=== PATIENT | female | born 1985 | race American Indian/Alaskan Native ===

== ENCOUNTER 2019-07-27 23:37 | Emergency (ER) | payer SELFPAY ==
[2019-07-28 01:11] LABS: Bilirubin,Urine NEG (Negative); Blood,Urine SM (Negative); Color,Urine Yellow (Yellow); Mucus,Urine FEW /HPF; Protein,Urine <15 mg/dL mg/dL (Negative); Urobilinogen,Urine < 2.0 mg/dL (<2.0)
[2019-07-28 01:26] LABS: Basophils % (Auto) 0.4 % (0.0-1.8); Eosinophils # (Auto) 0.2 K/mm3 (0.0-0.4); Eosinophils % (Auto) 2.3 % (0.0-4.3); Hematocrit 38.2 % (30.3-42.9); Hemoglobin 12.7 gm/dl (10.1-14.3); Lymphocytes # (Auto) 2.4 K/mm3 (1.2-5.4); Lymphocytes % (Auto) 36.7 % (13.4-35.0); Mean Corpuscular HGB Conc 33 % (30-34); Mean Corpuscular Volume 79 fl (79-97); Monocytes # (Auto) 0.7 K/mm3 (0.0-0.8); Monocytes % (Auto) 9.8 % (0.0-7.3); Platelet Count 247 K/mm3 (140-440); Red Blood Count 4.83 M/mm3 (3.65-5.03); Red Cell Distribution Width 14.9 % (13.2-15.2)
[2019-07-28 01:44] LABS: Alanine Aminotransferase 12 units/L (7-56); Albumin 4.1 g/dL (3.9-5); BUN/Creatinine Ratio 14; Blood Urea Nitrogen 13 mg/dL (7-17); Calcium 9.2 mg/dL (8.4-10.2); Hemolysis Index 19
--- NOTE | 2019-07-28 01:47 | Cat Scan Report ---
CT ABDOMEN AND PELVIS WITHOUT CONTRAST INDICATION / CLINICAL INFORMATION: lt flank pain. Nausea and constipation. TECHNIQUE: Axial CT images were obtained through the abdomen and pelvis without IV contrast. All CT scans at [facility] location are performed using CT dose reduction for ALARA by means of automated exposure control. COMPARISON: None available. FINDINGS: LOWER CHEST: No significant abnormality. LIVER: No significant abnormality. GALLBLADDER: Contracted with tiny gallstones but no inflammation. BILE DUCTS: No significant abnormality. PANCREAS: No significant abnormality. SPLEEN: No significant abnormality. ADRENALS: No significant abnormality. RIGHT KIDNEY and URETER: No significant abnormality. LEFT KIDNEY and URETER: No significant abnormality. STOMACH and SMALL BOWEL: No significant abnormality. COLON: No significant abnormality. APPENDIX: No significant abnormality. PERITONEUM: No free fluid. No free air. No fluid collection. LYMPH NODES: No significant adenopathy. AORTA and ARTERIES: No significant abnormality. IVC and VEINS: No significant abnormality. URINARY BLADDER: No significant abnormality. REPRODUCTIVE ORGANS: Intrauterine device in place. Small pedunculated fibroid off of the fundus of e uterus. No adnexal abnormality. ADDITIONAL FINDINGS: None. SKELETAL SYSTEM: No significant abnormality. IMPRESSION: 1. No inflammatory process or bowel obstruction. 2. No urinary tract stones or hydronephrosis. 3. Contracted gallbladder with tiny gallstones but no inflammation. Signer Name: Antonieta Escobar MD Signed: 07/28/2019 2:43 AM Workstation Name: [id number]
--- NOTE | 2019-07-28 01:57 | Emergency Department Report ---
ED Abdominal Pain HPI - General Chief Complaint: Abdominal Pain Stated Complaint: SOB/VOMITING/LIGHTHEADED Time Seen by Provider: 07/28/19 01:39 EDT Source: patient, family Mode of arrival: Ambulatory Limitations: No Limitations - History of Present Illness Initial Comments: Patient here complaining of left flank pain and abdominal pain worsened coughing and is started 1700 yesterday. She says she vomited once. Reports some urinary burning abdominal pain to pelvic area along with left flank pain is 9 out of 10 that is achy and cramping. Last measured. Was 06/27/2019. Patient is a history of anemia, dysmenorrhea and obesity. She also has a history of asthma. No medication taken. Denies any fever or chills. Denies any chest pain or shortness of breath. Denies any runny nose. Patient thinks that she pulled a muscle from MD Complaint: abdominal pain, flank pain Onset/Timin -: days(s) Location: suprapubic, L flank Radiation: none Migration to: no migration Severity: severe Severity scale (0 -10): 9 Quality: cramping, aching Consistency: intermittent Worsens With: nothing Associated Symptoms: vomiting, dysuria. denies: nausea, diarrhea, fever, chills, constipation, hematemesis, hematochezia, melena, hematuria, anorexia, syncope Treatments Prior to Arrival: other (none) - Related Data LMP Date: 06/27/19 Previous Rx's Medication Instructions Recorded Last Taken Type Cyclobenzaprine [Flexeril] 10 mg PO TID PRN #12 tablet 07/28/19 Unknown Rx Sulfamethoxazole/Trimethoprim 1 each PO BID 7 Days #14 tablet 07/28/19 Unknown R x [Bactrim DS TAB] Allergies Allergy/AdvReac Type Severity Reaction Status Date / Time No Known Allergies Allergy Unverified 07/28/19 00:56 ED Review of Systems ROS: Stated complaint: SOB/VOMITING/LIGHTHEADED Other details as noted in HPI Constitutional: denies: chills, fever ENT: denies: throat pain, congestion Respiratory: denies: cough, shortness of breath, wheezing Cardiovascular: denies: chest pain, palpitations, edema, syncope Gastrointestinal: abdominal pain, vomiting. denies: nausea, diarrhea, constipation, hematemesis, melena, hematochezia Genitourinary: dysuria, abnormal menses. denies: urgency, frequency, hematuria, discharge, dyspareunia Musculoskeletal: back pain. denies: joint swelling, arthralgia, myalgia Skin: denies: rash Neurological: denies: headache, numbness, paresthesias, abnormal gait, vertigo ED Past Medical Hx - Past Medical History Previous Medical History?: Yes Hx Asthma: Yes Additional medical history: Anemia, Dysmennorrhea, Obesity - Surgical History Past Surgical History?: No - Family History Family history: hypertension - Social History Smoking Status: Never Smoker Substance Use Type: Marijuana - Medications Home Medications: Home Medications Medication Instructions Recorded Confirmed Last Taken Type Cyclobenzaprine [Flexeril] 10 mg PO TID PRN #12 tablet 07/28/19 Unknown Rx Sulfamethoxazole/Trimethoprim 1 each PO BID 7 Days #14 tablet 07/28/19 Unknown Rx [Bactrim DS TAB] ED Physical Exam - General Limitations: No Limitations General appearance: alert, in no apparent distress - Head Head exam: Present: atraumatic, normocephalic, normal inspection - Eye Eye exam: Present: normal appearance, PERRL, EOMI Pupils: Present: normal accommodation - ENT ENT exam: Present: normal exam, normal orophraynx, mucous membranes moist - Neck Neck exam: Present: normal inspection, full ROM. Absent: tenderness - Respiratory Respiratory exam: Present: normal lung sounds bilaterally. Absent: respiratory distress, chest wall tenderness - Cardiovascular Cardiovascular Exam: Present: regular rate, normal rhythm, normal heart sounds - GI/Abdominal GI/Abdominal exam: Present: soft, tenderness (minimal tenderness to left lower quadrant and pelvic area.), normal bowel sounds. Absent: distended, guarding, rebound, rigid, organomegaly - Extremities Exam Extremities exam: Present: normal inspection, full ROM, normal capillary refill, other (No cce. + 2 pulses in all extremities, no neurovascular compromise). Absent: tenderness, pedal edema, joint swelling - Back Exam Back exam: Present: normal inspection, full ROM, other (ambulates without any difficulties). Absent: tenderness, CVA tenderness (R), CVA tenderness (L), muscle spasm, paraspinal tenderness, vertebral tenderness, rash noted - Neurological Exam Neurological exam: Present: alert, oriented X3, normal gait - Psychiatric Psychiatric exam: Present: normal affect, normal mood - Skin Skin exam: Present: warm, dry, intact, normal color. Absent: rash ED Course Vital Signs 07/28/19 07/28/19 00:16 03:05 Temperature 98.1 F Pulse Rate 68 Respiratory 18 16 Rate Blood Pressure 152/88 125/78 O2 Sat by Pulse 99 Oximetry - Reevaluation(s) Reevaluation #1: 07/28/19 03:20 Given hydrocodone 5/325 mg 2 tablets by mouth and Zofran 8 mg ODT for pain which relieved her pain. Urinalysis shows that she has urinary tract infection. Patient will be started on antibiotics and sent home on muscle relaxant and I told her I will send urine culture off. Vital signs are stable she is afebrile and she is in no acute distress. ED Medical Decision Making - Lab Data Result diagrams: 07/28/19 01:02 EST 07/28/19 01:02 EST Lab Results 07/28/19 07/28/19 07/28/19 Range/Units 01:02 EST 01:02 EST 01:02 EST WBC 6.6 (4.5-11.0) K/mm3 RBC 4.83 (3.65-5.03) M/mm3 Hgb 12.7 (10.1-14.3) gm/dl Hct 38.2 (30.3-42.9) % MCV 79 (79-97) fl MCH 26 L (28-32) pg MCHC 33 (30-34) % RDW 14.9 (13.2-15.2) % Plt Count 247 (140-440) K/mm3 Lymph % (Auto) 36.7 H (13.4-35.0) % [place] % (Auto) 9.8 H (0.0-7.3) % Eos % (Auto) 2.3 (0.0-4.3) % Baso % (Auto) 0.4 (0.0-1.8) % Lymph # 2.4 (1.2-5.4) K/mm3 [place] # 0.7 (0.0-0.8) K/mm3 Eos # 0.2 (0.0-0.4) K/mm3 Baso # 0.0 (0.0-0.1) K/mm3 Seg Neutrophils % 50.8 (40.0-70.0) % Seg Neutrophils # 3.4 (1.8-7.7) K/mm3 Sodium 139 (137-145) mmol/L Potassium 4.1 (3.6-5.0) mmol/L Chloride 102.4 (98-107) mmol/L Carbon Dioxide 26 (22-30) mmol/L Anion Gap 15 mmol/L BUN 13 (7-17) mg/dL Creatinine 0.9 (0.7-1.2) mg/dL Estimated GFR > 60 ml/min BUN/Creatinine Ratio 14 % Glucose 88 (65-100) mg/dL Calcium 9.2 (8.4-10.2) mg/dL Total Bilirubin 0.20 (0.1-1.2) mg/dL AST 16 (5-40) units/L ALT 12 (7-56) units/L Alkaline Phosphatase 36 (35-129) units/L Total Protein 7.2 (6.3-8.2) g/dL Albumin 4.1 (3.9-5) g/dL Albumin/Globulin Ratio 1.3 % HCG, Qual Negative (Negative) Urine Color (Yellow) Urine Turbidity (Clear) Urine pH (5.0-7.0) Ur Specific [place] (1.003-1.030) Urine Protein (Negative) mg/dL Urine Glucose (UA) (Negative) mg/dL Urine Ketones (Negative) mg/dL Urine Blood (Negative) Urine Nitrite (Negative) Urine Bilirubin (Negative) Urine Urobilinogen (<2.0) mg/dL Ur Leukocyte Esterase (Negative) Urine WBC (Auto) (0.0-6.0) /HPF Urine RBC (Auto) (0.0-6.0) /HPF U Epithel Cells (Auto) (0-13.0) /HPF Urine Mucus /HPF 07/28/19 Range/Units Unknown WBC (4.5-11.0) K/mm3 RBC (3.65-5.03) M/mm3 Hgb (10.1-14.3) gm/dl Hct (30.3-42.9) % MCV (79-97) fl MCH (28-32) pg MCHC (30-34) % RDW (13.2-15.2) % Plt Count (140-440) K/mm3 Lymph % (Auto) (13.4-35.0) % [place] % (Auto) (0.0-7.3) % Eos % (Auto) (0.0-4.3) % Baso % (Auto) (0.0-1.8) % Lymph # (1.2-5.4) K/mm3 [place] # (0.0-0.8) K/mm3 Eos # (0.0-0.4) K/mm3 Baso # (0.0-0.1) K/mm3 Seg Neutrophils % (40.0-70.0) % Seg Neutrophils # (1.8-7.7) K/mm3 Sodium (137-145) mmol/L Potassium (3.6-5.0) mmol/L Chloride (98-107) mmol/L Carbon Dioxide (22-30) mmol/L Anion Gap mmol/L BUN (7-17) mg/dL Creatinine (0.7-1.2) mg/dL Estimated GFR ml/min BUN/Creatinine Ratio % Glucose (65-100) mg/dL Calcium (8.4-10.2) mg/dL Total Bilirubin (0.1-1.2) mg/dL AST (5-40) units/L ALT (7-56) units/L Alkaline Phosphatase (35-129) units/L Total Protein (6.3-8.2) g/dL Albumin (3.9-5) g/dL Albumin/Globulin Ratio % HCG, Qual (Negative) Urine Color Yellow (Yellow) Urine Turbidity Slightly-cloudy (Clear) Urine pH 6.0 (5.0-7.0) Ur Specific [place] 1.025 (1.003-1.030) Urine Protein <15 mg/dl (Negative) mg/dL Urine Glucose (UA) Neg (Negative) mg/dL Urine Ketones Neg (Negative) mg/dL Urine Blood Sm (Negative) Urine Nitrite Neg (Negative) Urine Bilirubin Neg (Negative) Urine Urobilinogen < 2.0 (<2.0) mg/dL Ur Leukocyte Esterase Sm (Negative) Urine WBC (Auto) 9.0 H (0.0-6.0) /HPF Urine RBC (Auto) 3.0 (0.0-6.0) /HPF U Epithel Cells (Auto) 10.0 (0-13.0) /HPF Urine Mucus Few /HPF Urine culture sent - Radiology Data Radiology results: report reviewed Patient has CT scan of abdomen and pelvis without contrast which was dictated by radiologist and report reviewed by myself. No abnormalities seen. Findings [facility] [address] [place] [address] Cat Scan Report Signed Patient: SENDY SHANNON MR#: [id number] : 1985 Acct:[id number] Age/Sex: 34 / F ADM Date: 07/27/19 Loc: ED Attending Dr: Ordering Physician: SHWETHA TEJEDA Date of Service: 07/28/19 Procedure(s): CT abdomen pelvis wo con Accession Number(s): [id number] cc: SHWETHA TEJEDA CT ABDOMEN AND PELVIS WITHOUT CONTRAST INDICATION / CLINICAL INFORMATION: lt flank pain. Nausea and constipation. TECHNIQUE: Axial CT images were obtained through the abdomen and pelvis without IV contrast. All CT scans at this location are performed using CT dose reduction for ALARA by means of automated exposure control. COMPARISON: None available. FINDINGS: LOWER CHEST: No significant abnormality. LIVER: No significant abnormality. GALLBLADDER: Contracted with tiny gallstones but no inflammation. BILE DUCTS: No significant abnormality. PANCREAS: No significant abnormality. SPLEEN: No significant abnormality. ADRENALS: No significant abnormality. RIGHT KIDNEY and URETER: No significant abnormality. LEFT KIDNEY and URETER: No significant abnormality. STOMACH and SMALL BOWEL: No significant abnormality. COLON: No significant abnormality. APPENDIX: No significant abnormality. PERITONEUM: No free fluid. No free air. No fluid collection. LYMPH NODES: No significant adenopathy. AORTA and ARTERIES: No significant abnormality. IVC and VEINS: No significant abnormality. URINARY BLADDER: No significant abnormality. REPRODUCTIVE ORGANS: Intrauterine device in place. Small pedunculated fibroid off of the fundus of the uterus. No adnexal abnormality. ADDITIONAL FINDINGS: None. SKELETAL SYSTEM: No significant abnormality. IMPRESSION: 1. No inflammatory process or bowel obstruction. 2. No urinary tract stones or hydronephrosis. 3. Contracted gallbladder with tiny gallstones but no inflammation. Signer Name: Antonieta Escobar MD Signed: 07/28/2019 2:43 AM Workstation Name: [id number] Transcribed By: DT Dictated By: Francis Escobar MD Electronically Authenticated By: Francis Escobar MD Signed Date/Time: 07/28/19 0243 DD/ 0239 TD/TT: - Medical Decision Making This is a 34-year-old female here for left flank pain and pelvic pain. She was found to have acute cystitis with hematuria. No hydronephrosis or stones seen. Appendix is normal. Abnormal finding on CT scan of the abdomen and pelvis without contrast that was dictated by radiologist and report reviewed by myself. Her CBC and CMP are stable test is negative and urinalysis with positive UTI. Labs, CT scan and diagnosis along with medication and treatment plan, indicating the patient and she voiced understanding. She is to follow up with her primary care physician in 2-3 days and to have repeat urinalysis in 7 days. She voiced understanding and discharged home with prescription for Ba ctrim DS and Flexeril - Differential Diagnosis renal calculus, pyelonephritis, UTI, muscle strain Critical care attestation.: If time is entered above; I have spent that time in minutes in the direct care of this critically ill patient, excluding procedure time. ED Disposition Clinical Impression: Acute cystitis with hematuria, Left flank pain Abdominal pain Qualifiers: Abdominal location: lower abdomen, unspecified Qualified Code(s): R10.30 - Lower abdominal pain, unspecified Disposition: - TO HOME OR SELFCARE Is pt being admited?: No Does the pt Need Aspirin: No Condition: Stable Instructions: Abdominal Pain (ED), Urinary Tract Infection in Women (ED), Flank Pain (ED), Acute Abdominal Pain (ED) Additional Instructions: Please return to the emergency room if his symptoms return in worsens. Otherwise follow-up with primary care physician and if he do not have a primary care physician follow[facility]up at [facility]. Take medication prescribed but please do not drive or operate heavy machinery while taking Flexeril as this medication causes drowsiness Increase your fluid intake to at least 2-3 L of water daily. Prescriptions: Sulfamethoxazole/Trimethoprim [Bactrim DS TAB] 1 each PO BID 7 Days #14 tablet Cyclobenzaprine [Flexeril] 10 mg PO TID PRN #12 tablet PRN Reason: Muscle Spasm Referrals: PRIMARY CARE, [Primary Care Provider] - 2-3 Days [facility] [Outside] - 2-3 Days Forms: Work/School Release Form(ED)
[2019-07-28] MEDS ORDERED: HYDROcodone/ACETAMINOPHEN 5-325 MG TAB PO ONE (01:58)
[2019-07-28] MEDS ORDERED: ONDANSETRON 4 MG ODT TAB PO ONE (01:58)
[2019-07-28 03:16] VITALS: BP 125/78
== END 2019-07-28 04:26 | disposition home or self-care (01) ==
LOC: ED 23:37
DX: N30.01 Acute cystitis with hematuria (principal); J45.909 Unspecified asthma, uncomplicated; E66.9 Obesity, unspecified; Z68.42 Body mass index [BMI] 45.0-49.9, adult; F12.10 Cannabis abuse, uncomplicated; Z79.899 Other long term (current) drug therapy
CPT/HCPCS: 36415; 74176; 80053; 81001; 84703; 85025; 87086; 99284; Q0162

== ENCOUNTER 2022-01-02 19:30 | Inpatient (IN) | payer OTHER ==
[2022-01-02 20:36] LABS: Hematocrit 34.6 % (30.3-42.9); Hemoglobin 11.7 gm/dl (10.1-14.3); Mean Corpuscular HGB Conc 34 % (30-34); Mean Corpuscular Volume 77 fl (79-97); Platelet Count 382 K/mm3 (140-440); Red Cell Distribution Width 14.4 % (13.2-15.2)
[2022-01-02 20:57] LABS: Alanine Aminotransferase 46 units/L (7-56); Albumin 3.3 g/dL (3.9-5); BUN/Creatinine Ratio 8; Blood Urea Nitrogen 9 mg/dL (7-17); Calcium 9.6 mg/dL (8.4-10.2); Hemolysis Index 2
[2022-01-02] MEDS ORDERED: ONDANSETRON 4 MG/2 ML INJ IV ONE (21:32)
[2022-01-02] MEDS ORDERED: SODIUM CHLORIDE 0.9% 1000 ML 1,000 ML IV ONE (21:32)
[2022-01-02] MEDS ORDERED: MORPHINE 4 MG/1 ML INJ IV ONE (21:32)
--- NOTE | 2022-01-02 21:39 | Emergency Department Report ---
ED Abdominal Pain HPI - General Chief Complaint: Abdominal Pain Stated Complaint: CONSTIPATION Time Seen by Provider: 01/02/22 20:55 Source: patient Mode of arrival: Stretcher Limitations: No Limitations - History of Present Illness Initial Comments: 36-year-old morbidly obese female who presents with lower abdominal pain that started 6 days ago and progressively getting worse. Patient initially went to be seen at [facility] emergency room and was told to follow-up with her PROFESSOR OF COUNSELING for the removal of IUD that she had had for about 5 years. Patient initially got the IUD because she was having dysfunctional uterine bleeding. She went to follow-up with her PROFESSOR OF COUNSELING 3 days later on Monday who insisted of doing a Pap smear before removal of the IUD. The next day on IUD was removed by the Manager Packaging with no improvement in pain. Patient also mentioned nausea and vomiting and said he has not been able to keep anything down for the last 3 day s. Every time I try to eat or drink it comes right back up. Patient however denies any fever or chills. No other modifying or positive factors reported. - Related Data Previous Rx's Medication Instructions Recorded Last Taken Type Cyclobenzaprine [Flexeril] 10 mg PO TID PRN #12 tablet 07/28/19 Unknown Rx Sulfamethoxazole/Trimethoprim 1 each PO BID 7 Days #14 tablet 07/28/19 Unknown Rx [Bactrim DS TAB] Allergies Allergy/AdvReac Type Severity Reaction Status Date / Time No Known Allergies Allergy Unverified 07/28/19 00:56 ED Review of Systems ROS: Stated complaint: CONSTIPATION Other details as noted in HPI Comment: All other systems reviewed and negative Cardiovascular: denies: chest pain, palpitations Gastrointestinal: abdominal pain, nausea, vomiting, constipation. denies: diarrhea ED Past Medical Hx - Past Medical History Previous Medical History?: Yes Hx Asthma: Yes Additional medical history: Anemia, Dysmennorrhea, Obesity - Surgical History Past Surgical History?: No - Social History Smoking Status: Never Smoker Substance Use Type: None - Medications Home Medications: Home Medications Medication Instructions Recorded Confirmed Last Taken Type Cyclobenzaprine [Flexeril] 10 mg PO TID PRN #12 tablet 07/28/19 Unknown Rx Sulfamethoxazole/Trimethoprim 1 each PO BID 7 Days #14 tablet 07/28/19 Unknown Rx [Bactrim DS TAB] ED Physical Exam - General Limitations: No Limitations General appearance: alert, in distress (Due to abdominal pain) - Head Head exam: Present: normal inspection - Eye Eye exam: Present: normal appearance Pupils: Present: normal accommodation - ENT ENT exam: Present: normal exam, normal orophraynx, mucous membranes moist - Neck Neck exam: Present: normal inspection, full ROM. Absent: tenderness - Respiratory Respiratory exam: Present: normal lung sounds bilaterally. Absent: respiratory distress - Cardiovascular Cardiovascular Exam: Present: regular rate, normal rhythm, normal heart sounds - GI/Abdominal GI/Abdominal exam: Present: soft, tenderness (Suprapubic tenderness to palpation), normal bowel sounds - Extremities Exam Extremities exam: Present: normal inspection, full ROM, normal capillary refill - Back Exam Back exam: Present: normal inspection. Absent: CVA tenderness (R), CVA tenderness (L) - Neurological Exam Neurological exam: Present: alert, oriented X3. Absent: altered - Psychiatric Psychiatric exam: Present: normal affect, normal mood - Skin Skin exam: Present: warm, rash. Absent: intact ED Course Vital Signs 01/02/22 19:39 Temperature 98 F Pulse Rate 97 H Respiratory 18 Rate Blood Pressure 129/90 O2 Sat by Pulse 100 Oximetry - Reevaluation(s) Reevaluation #1: 01/02/22 21:40 here with suprapubic pain and noted with diffused abdominal tenderness post IUD removal -- will go ahead and give pain medication, antiemesis and ivf ns 1L bolus x 1-- and order routine labs CBC, CMP and UA for any electryles or infectious process -- Reevaluation #2: 01/02/22 23:46 Patient reports feeling a little bit better after the pain medicine and the IV fluids however the CT scan reports finding 2.5 cm multiloculated fluid collection within the pelvic suspicious to be abscess, coupled with elevated white count at 24.8 with left shift neutrophils of 83.5%. Due to this patient will vital signs seem to be reassuring but with the amount of pain coupled with pelvic abscess we will consider admitting this patient. The Manager Packaging Dr Wilson consulted who agreed to admit patient to his service with antibiotics and pain control. Patient given 1 g of Rocephin in the emergency room and 500 mg of Flagyl. And blood culture and lactic acid was ordered as well. 01/02/22 23:57 ED Medical Decision Making - Lab Data Result diagrams: 01/02/22 20:16 01/02/22 20:16 Critical care attestation.: If time is entered above; I have spent that time in minutes in the direct care of this critically ill patient, excluding procedure time. ED Disposition Clinical Impression: Suprapubic pain, acute, Pelvic abscess, Pelvic inflammatory disease Abdominal pain Qualifiers: Abdominal location: lower abdomen, unspecified Qualified Code(s): R10.30 - Lower abdominal pain, unspecified Disposition: 09 ADMITTED INPATIENT Is pt being admited?: Yes Does the pt Need Aspirin: No Condition: Stable Instructions: Abdominal Pain (ED) Referrals: JUSTYN NIELSEN MD [Primary Care Provider] - 3-5 Days Time of Disposition: 23:49 (Dr Wilson accepted patient)
--- NOTE | 2022-01-02 22:24 | Cat Scan Report ---
CT abdomen pelvis w con INDICATION / CLINICAL INFORMATION: abdominal pain. TECHNIQUE: Axial CT images were obtained through the abdomen and pelvis after 100 cc of Omnipaque [address] scans at this location are performed using CT dose reduction for ALARA by means of automated exposure control. COMPARISON: None available. FINDINGS: Lung bases are clear. There is hepatomegaly with hepatic steatosis. Pancreas, spleen, adrenals, and k idneys are unremarkable. Bladder is decompressed. There is a multiloculated fluid collection within the pelvis, measuring 10.5 x 7.2 cm transaxially (s eries 2 image 181) and approximately 5.7 cm in craniocaudal dimension (series 602 image 102). Uterus/ adnexa appear otherwise unremarkable. Inflammatory changes of the adjacent sigmoid colon is favored to be reactive to infectious/inflammato ry changes of the pelvis. Remainder of the bowel is unremarkable. No free air. No acute osseous findi ngs. IMPRESSION: 1. 2.5 cm multiloculated fluid collection within the pelvis is suspicious for abscess. Findings could be related to pelvic inflammatory disease/tubo-ovarian abscess. Inflammatory changes of the adjacent sigmoid colon are favored to be secondary. Recommend further evaluation with pelvic ultrasound. 2. No other acute findings. Signer Name: Jose Francisco Reeves MD Signed: 01/02/2022 10:20 PM Workstation Name: [id number]
[2022-01-02 22:33] LABS: Anisocytosis 1+; Band Neutrophils # (Manual) 0.2 K/mm3; Basophils % (Manual) 0 % (0.0-1.8); Eosinophils % (Manual) 0 % (0.0-4.3); Total Cells Counted 200
[2022-01-02 22:34] LABS: Platelet Estimate Consistent w Auto
[2022-01-02] MEDS ORDERED: cefTRIAXone/NS 1 GM/50 ML 1 GM/50 ML BAG IV ONE (23:25)
[2022-01-02] MEDS ORDERED: metroNIDAZOLE/NS 500 MG/100 ML 500 MG/100 ML BAG IV ONE (23:25)
[2022-01-03 02:13] LABS: Bacteria,Urine 1+ /HPF (Negative); Bilirubin,Urine NEG (Negative); Blood,Urine MOD (Negative); Color,Urine Yellow (Yellow); Mucus,Urine FEW /HPF; Protein,Urine <15 mg/dL mg/dL (Negative)
[2022-01-03 02:14] LABS: HCG Qualitative,Urine Negative (Negative)
[2022-01-03] MEDS ORDERED: NALOXONE 0.4 MG/1 ML INJ IV PRN (02:30)
[2022-01-03] MEDS: MORPHINE 4 MG/1 ML INJ IV PRN (03:45)
[2022-01-03] MEDS ORDERED: KETOROLAC 30 MG/1 ML INJ IV PRN (04:00)
[2022-01-03] MEDS ORDERED: MORPHINE 2 MG/1 ML INJ IV PRN (04:00)
[2022-01-03] MEDS ORDERED: HYDROcodone/ACETAMINOPHEN 5-325 MG TAB PO PRN (04:00)
[2022-01-03] MEDS ORDERED: ACETAMINOPHEN 325 MG TAB PO PRN (04:00)
[2022-01-03] MEDS ORDERED: IBUPROFEN 800 MG TAB PO PRN (04:00)
[2022-01-03] MEDS: D5W/LACTATED RINGERS 1,000 ML IV SCH ×2 (06:35→15:52)
[2022-01-03] MEDS ORDERED: ceFAZolin/NS 1 GM/50 ML 1 GM/50 ML BAG IV SCH ×2 (08:00→20:00)
[2022-01-03] MEDS ORDERED: CLINDAMYCIN 600 MG/50 mL 600 MG/50 ML BAG IV SCH ×2 (08:00→20:00)
--- NOTE | 2022-01-03 09:36 | History and Physical Report ---
History of Present Illness Date of examination: 01/03/22 Date of admission: 01/03/22 02:31 Chief complaint: Pelvic pains x 10 days. History of present illness: Patient noticed worsening pelvic at least a week prior to 12/30/21 when she had a long standing IUD removed. She stated her pains got worse and so presented in the er over night. Appetite and low grade fever were present. Past History Past Medical History: no pertinent history Past Surgical History: no surgical history [employer] History: trichomonas Medications and Allergies Allergies Allergy/AdvReac Type Severity Reaction Status Date / Time No Known Allergies Allergy Unverified 07/28/19 00:56 Home Medications Medication Instructions Recorded Confirmed Last Taken Type Cyclobenzaprine [Flexeril] 10 mg PO TID PRN #12 tablet 07/28/19 Unknown Rx Sulfamethoxazole/Trimethoprim 1 each PO BID 7 Days #14 tablet 07/28/19 Unknown Rx [Bactrim DS TAB] Active Meds: Active Medications Acetaminophen (Acetaminophen 325 Mg Tab) 650 mg PO Q4H PRN PRN Reason: Pain, Mild (1-3) Hydrocodone Bitart/Acetaminophen (Hydrocodone/Acetaminophen 5-325 Mg Tab) 2 each PO Q6H PRN PRN Reason: Pain, Moderate (4-6) Dextrose/Lactated Ringer's (D5lr) 1,000 mls @ 125 mls/hr IV DIRECT APOLONIA Last Admin: 01/03/22 06:35 Dose: 125 mls/hr Cefazolin Sodium (Ancef/Ns 1 Gm/50 Ml) 1 gm in 50 mls @ 100 mls/hr IV Q8H APOLONIA; Protocol Stop: 01/03/22 16:29 Clindamycin HCl (Cleocin 600 Mg/50 Ml) 600 mg in 50 mls @ 100 mls/hr IV Q8H APOLONIA; Protocol Stop: 01/03/22 16:29 Ibuprofen (Ibuprofen 800 Mg Tab) 800 mg PO Q8H PRN PRN Reason: Pain, Moderate (4-6) Ketorolac Tromethamine (Ketorolac 30 Mg/1 Ml Inj) 15 mg IV Q6H PRN PRN Reason: Pain, Moderate (4-6) Stop: 01/08/22 03:59 Morphine Sulfate (Morphine 2 Mg/1 Ml Inj) 2 mg IV Q4H PRN PRN Reason: Pain, Moderate (4-6) Morphine Sulfate (Morphine 4 Mg/1 Ml Inj) 4 mg IV Q4H PRN PRN Reason: Pain , Severe (7-10) Last Admin: 01/03/22 03:45 Dose: 4 mg Naloxone HCl (Naloxone 0.4 Mg/1 Ml Inj) 0.1 mg IV Q2MIN PRN PRN Reason: Res Rate </= 8 or 02 SAT < 92% Ondansetron HCl (Ondansetron 4 Mg/2 Ml Inj) 4 mg IV Q8H PRN PRN Reason: Nausea And Vomiting Review of Systems All systems: negative Constitutional: anorexia, poor appetite Gastrointestinal: abdominal pain Genitourinary: pelvic pain - Vital Signs Vital signs: Vital Signs Temp Pulse Resp BP Pulse Ox 98 F 97 H 18 129/90 100 01/02/22 19:39 01/02/22 19:39 01/02/22 19:39 01/02/22 19:39 01/02/22 19:39 Temp Pulse Resp BP Pulse Ox 98 F 89 20 126/79 100 01/02/22 19:39 01/03/22 04:03 01/03/22 04:03 01/03/22 04:03 01/03/22 06:49 - Physical Exam Lungs: Positive: Normal air movement Abdomen: Positive: other (Obese) Vagina: Positive: other (Vag exam was deferred: patient was under narcotic pain meds.) Extremities: Positive: normal Deep Tendon Reflex Grade: Normal +2 Results Result Diagrams: 01/02/22 20:16 01/02/22 20:16 Abnormal lab results 01/02/22 01/02/22 01/03/22 Range/Units 20:16 20:16 01:31 WBC 24.8 H (4.5-11.0) K/mm3 MCV 77 L (79-97) fl MCH 26 L (28-32) pg Seg Neuts % (Manual) 83.5 H (40.0-70.0) % Lymphocytes % (Manual) 5.5 L (13.4-35.0) % Monocytes % (Manual) 10.0 H (0.0-7.3) % Seg Neutrophils # Man 20.7 H (1.8-7.7) K/mm3 Monocytes # (Manual) 2.5 H (0.0-0.8) K/mm3 Sodium 131 L (137-145) mmol/L Potassium 3.3 L (3.6-5.0) mmol/L Chloride 94.3 L (98-107) mmol/L Carbon Dioxide 20 L (22-30) mmol/L Glucose 119 H (65-100) mg/dL Total Bilirubin 1.70 H (0.1-1.2) mg/dL AST 50 H (5-40) units/L Alkaline Phosphatase 193 H (35-129) units/L Albumin 3.3 L (3.9-5) g/dL Ur Specific [place] 1.036 H (1.003-1.030) Urine WBC (Auto) 15.0 H (0.0-6.0) /HPF U Epithel Cells (Auto) 19.0 H (0-13.0) /HPF All other labs normal. Assessment and Plan - Patient Problems (1) Hypokalemia Current Visit: Yes Status: Acute (2) Abdominal pain Current Visit: Yes Status: Acute Qualifiers: Abdominal location: lower abdomen, unspecified Qualified Code(s): R10.30 - Lower abdominal pain, unspecified (3) Pelvic abscess Current Visit: Yes Status: Acute Plan to address problem: Will reassess "pelvic pain" in the am if free of pain meds. (4) Pelvic inflammatory disease Current Visit: Yes Status: Acute Plan to address problem: Started on antibiotics[cefizox,clindamycin and zithromax]. Flagyl was added after patient's regular called into the hospital to tell her she tested positive for trichomoniasis.
[2022-01-03] MEDS ORDERED: POTASSIUM CHLORIDE 10 MEQ 10 MEQ/100 ML BAG IV ONE (16:55)
[2022-01-03] MEDS ORDERED: AZITHROMYCIN 250 MG TAB PO ONE (17:00)
[2022-01-03] MEDS: ONDANSETRON 4 MG/2 ML INJ IV PRN ×2 (20:33→21:21)
[2022-01-04] MEDS: D5W/LACTATED RINGERS 1,000 ML IV SCH (00:37)
[2022-01-04] MEDS: MORPHINE 4 MG/1 ML INJ IV PRN (03:16)
[2022-01-04 07:52] LABS: Hematocrit 34.1 % (30.3-42.9); Hemoglobin 11.2 gm/dl (10.1-14.3)
[2022-01-04] MEDS ORDERED: AZITHROMYCIN 250 MG TAB PO ONE (12:00)
--- NOTE | 2022-01-04 13:06 | Event Note ---
Date: 01/04/22 Stable and feeling better on antibiotics. Able to complete antibiotic course as an outpatient. May follow up with own [employer] or me in 2 weeks.
--- NOTE | 2022-01-04 13:10 | Discharge Summary ---
Providers - Providers Date of Admission: 01/03/22 02:31 Date of discharge: 01/04/22 Attending physician: MIKE MORGAN MD Primary care physician: JUSTYN NIELSEN Hospitalization Reason for admission: other (PID) Procedure: other (Antibiotic treatment.) Condition at discharge: Good Disposition: 01 HOME / SELF CARE / HOMELESS - Discharge Diagnoses (1) Hypokalemia Status: Chronic (2) Abdominal pain Status: Acute Qualifiers: Abdominal location: lower abdomen, unspecified Qualified Code(s): R10.30 - Lower abdominal pain, unspecified (3) Pelvic abscess Status: Acute (4) Pelvic inflammatory disease Status: Acute Plan - Provider Discharge Summary Activity: routine, no sex for 6 weeks, no heavy lifting 4 weeks, no strenuous exercise Diet: routine Instructions: other (Drink gatorade often, eat bananas, oranges for K+. F/U 1- 2wks. Script on file for doxycycline, flagyl, clindamycin.) Additional instructions: [] Smoking cessation referral if applicable(refer to patient education folder for contact #) [] Refer to [facility]'s [facility] Booklet Call your doctor immediately for: * Fever > 100.5 * Heavy vaginal bleeding ( >1 pad per hour) * Severe persistent headache * Shortness of breath * Reddened, hot, painful area to leg or breast * Drainage or odor from incision. * Keep incision clean and dry at all times and follow doctor's instructions regarding bathing/showering - Follow up plan Follow up: JUSTYN NIELSEN MD [Primary Care Provider] - 3-5 Days
[2022-01-04 16:14] VITALS: BP 123/64
== END 2022-01-04 17:30 | disposition home or self-care (01) | DRG 759 ==
LOC: ED 19:30 → OB 01-03 02:31
PROVIDERS: ADMIT Obstetrics & Gynecology; ATTEND Obstetrics & Gynecology
DX: N73.8 Other specified female pelvic inflammatory diseases (principal); R10.9 Unspecified abdominal pain; E87.6 Hypokalemia; Z20.822 Contact with and (suspected) exposure to COVID-19
CPT/HCPCS: 36415; 74177; 80053; 81001; 81025; 82140; 84703; 85007; 85014; 85018; 85025; 87040; 87086; G0378; J7060; J7502; J7517; Q0162; J0690; J0696; J1885; J2270; J2405; J7030; J7121; Q9967; U0003